=== PATIENT | male | born 1965 | race Caucasian/White ===

== ENCOUNTER 2016-10-01 23:56 | Emergency (ER) | payer OTHER ==
[~2016-10-01 23:56] MED LIST: CYCL-36 PO; IBUP-238 PO; LORT5TAB PO; Z.0.NO CURRENT MEDS
[2016-10-02 00:18] VITALS: BP 151/84; PULSE 110; RESP 12; TEMP 98.6; O2SAT 100
[2016-10-02] MEDS ORDERED: PERC5TAB12 PO ×2 (00:28→03:23)
[2016-10-02] MEDS ORDERED: MORPHINE SULFATE 8 MG/ML INJ IM ONE (00:30)
[2016-10-02] MEDS ORDERED: ONDANSETRON ODT 4 MG TAB PO ONE (00:30)
[2016-10-02] MEDS ORDERED: MORPHINE SULFATE 8 MG/ML INJ IV PUSH ONE (02:00)
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
[2016-10-02 02:35] LABS: AUTOMATED NEUTROPHIL # 6.1 TH/MM3 (1.8-7.7); BASOPHIL % 0.4 % (0.0-2.0); EOSINOPHIL # 0.2 TH/MM3 (0-0.4); EOSINOPHIL % 1.8 % (0.0-4.0); HEMATOCRIT 24.1 % (39.0-51.0); HEMO FLAGS DIFF FINAL; LYMPH % 24.4 % (9.0-44.0); LYMPHOCYTE # 2.3 TH/MM3 (1.0-4.8); MEAN CORPUSCULAR HEMOGLOBIN 29.5 PG (27.0-34.0); MEAN CORPUSCULAR HGB CONC 34.7 % (32.0-36.0); MONO % 8.4 % (0.0-8.0); PLATELET COUNT 288 TH/MM3 (150-450); RED BLOOD COUNT 2.84 MIL/MM3 (4.50-5.90); RED CELL DISTRIBUTION WIDTH 15.9 % (11.6-17.2); WHITE BLOOD COUNT 9.5 TH/MM3 (4.0-11.0)
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
[2016-10-02 07:45] VITALS: BP 130/78; PULSE 78; RESP 17; TEMP 97.8; O2SAT 99
[2016-10-02 08:17] VITALS: BP 130/77; TEMP 97.8
[2016-10-02 09:30] VITALS: BP 130/77; TEMP 97.8
== END 2016-10-02 09:30 | disposition home or self-care (01) ==
LOC: NEPE 23:56 → NEPD 10-02 09:30
DX: M79.605 Pain in left leg (principal); M79.89 Other specified soft tissue disorders; S71.102D Unspecified open wound, left thigh, subsequent encounter; Y24.9XXD Unspecified firearm discharge, undetermined intent, subsequent encounter
CPT/HCPCS: 85025; 93971; 96372; 96374; 99284; J2270